=== PATIENT | female | born 1980 ===

== ENCOUNTER 2024-01-31 11:45 | Inpatient (IN) | payer OTHER ==
[~2024-01-31] VITALS: Ht 152.4 cm; Wt 49.0 kg
[2024-01-31] MEDS ORDERED: BUSPAR 5MG (13:05)
[2024-01-31] MEDS ORDERED: PROZAC 30MG (13:05)
[2024-01-31] MEDS ORDERED: ATIVAN0.5 M1 (13:06)
[2024-01-31] MEDS ORDERED: ETHINYL ESTRADIOL (13:06)
[2024-01-31] MEDS ORDERED: NORGESTREL (13:06)
[2024-01-31] MEDS ORDERED: INTEGRA PLUS C1 EACH (13:07)
[2024-01-31] MEDS ORDERED: IBU400 MG (13:07)
[2024-01-31] MEDS ORDERED: VITAMIN D (13:07)
[2024-02-06 10:11] LABS: RH POSITIVE
[2024-02-06] MEDS ORDERED: CEFAZOLIN SODIUM 1,000 MG VIAL IV ONE (15:45)
[2024-02-06] MEDS ORDERED: HEMOSTATIC MATRIX 1 KIT KIT TOP ONE (16:15)
[2024-02-06] MEDS ORDERED: RINGERS SOLUTION,LACTATED 1,000 ML IV SCH (16:45)
[2024-02-06] MEDS ORDERED: MORPHINE SULFATE 4 MG/ML VIAL IV PRN (16:45)
[2024-02-06] MEDS ORDERED: ONDANSETRON HCL 2 MG/ML VIAL IV PRN (16:45)
[2024-02-06] MEDS ORDERED: MORPHINE SULFATE 2 MG,MORPHINE SULFATE 4 MG IV PRN (17:15)
[2024-02-06] MEDS ORDERED: ENALAPRILAT DIHYDRATE 1.25 MG/ML VIAL IV PRN (17:30)
[2024-02-06] MEDS ORDERED: CEFAZOLIN SODIUM 1,000 MG VIAL IV SCH (18:00)
[2024-02-06] MEDS ORDERED: MORPHINE SULFATE 4 MG/ML VIAL IV ONE ×2 (18:30→19:00)
[2024-02-06 19:40] VITALS: BP 130/83
[2024-02-06 21:29] LABS: HEMATOCRIT 38.1 % (36.0-45.00); HEMOGLOBIN 12.6 g/dL (12.0-15.00); MEAN CELL VOLUME 90.4 fL (80.00-100.00); MEAN CORPUSCULAR HEMOGLOBIN 29.9 pg (27.00-32.0); PLATELET COUNT 364 K/uL (150-450); RED BLOOD COUNT 4.22 M/uL (4.00-6.00); RED CELL DISTRIBUTION WIDTH 15.5 % (11.5-14.5)
[2024-02-07] VITALS: BP 135/90
[2024-02-07 06:53] LABS: HEMOGLOBIN 12.6 g/dL (12.0-15.00); MEAN CELL VOLUME 87.9 fL (80.00-100.00); MEAN CORPUSCULAR HEMOGLOBIN 29.1 pg (27.00-32.0); MEAN CORPUSCULAR HGB CONC 33.2 g/dl (32.0-36.0); PLATELET COUNT 419 K/uL (150-450); RED BLOOD COUNT 4.33 M/uL (4.00-6.00); RED CELL DISTRIBUTION WIDTH 15.2 % (11.5-14.5)
[2024-02-07] MEDS ORDERED: IBUprofen 800 MG TABLET PO PRN (07:15)
[2024-02-07] MEDS ORDERED: GABAPENTIN 300 MG CAPSULE PO PRN (07:15)
[2024-02-07] MEDS ORDERED: BUSPIRONE HCL 5 MG TABLET PO SCH (09:00)
[2024-02-07] MEDS ORDERED: FLUOXETINE HCL 10 MG CAPSULE PO SCH (09:00)
[2024-02-07] MEDS ORDERED: ENOXAPARIN SODIUM 40 MG/0.4 ML SYRINGE SUBCUTANEO SCH (09:00)
[2024-02-07 09:08] VITALS: BP 100/95
[2024-02-07] MEDS ORDERED: FAMOtidine 20 MG TABLET PO SCH (11:40)
[2024-02-07 16:00] VITALS: BP 145/97
[2024-02-08 01:00] VITALS: BP 140/90
[2024-02-08] MEDS ORDERED: GABAPENTIN300 MG PO (07:02)
[2024-02-08] MEDS ORDERED: IBUPROFEN800 MG PO (07:02)
[2024-02-08 08:20] VITALS: BP 129/92
== END 2024-02-08 09:48 | disposition home or self-care (01) | DRG 743 ==
LOC: O/R 02-06 08:52 → SURH 02-06 11:45 → OB/GYN 02-06 17:28
PROVIDERS: ADMIT Obstetrics & Gynecology Gynecology; ATTEND Obstetrics & Gynecology Gynecology
PROC: 0UT70ZZ Resection of Bilateral Fallopian Tubes, Open Approach (ICD-10-PCS; 2024-02-06)
PROC: 0USG0ZZ Reposition Vagina, Open Approach (ICD-10-PCS; 2024-02-06)
PROC: 0UT90ZZ Resection of Uterus, Open Approach (ICD-10-PCS; principal; 2024-02-06 14:45)
DX: D25.1 Intramural leiomyoma of uterus (principal); D25.2 Subserosal leiomyoma of uterus; D25.0 Submucous leiomyoma of uterus; F41.9 Anxiety disorder, unspecified; Z87.39 Personal history of other diseases of the musculoskeletal system and connective tissue; I34.1 Nonrheumatic mitral (valve) prolapse; Z20.822 Contact with and (suspected) exposure to COVID-19; N80.329 Endometriosis of the posterior cul-de-sac, unspecified depth